=== PATIENT | male | born 1945 | race Caucasian/White ===

== ENCOUNTER 2017-09-05 15:48 | Observation (INO) ==
[2017-09-05] MEDS ORDERED: Naloxone 0.4 MG/ML INJ IVP PRN (20:50)
[2017-09-05] MEDS ORDERED: Fluticasone Propionate Nasal 50 MCG/SPRAY BOTTLE NS PRN (21:27)
[2017-09-05] MEDS ORDERED: Famotidine 20 MG TABLET PO PRN (21:27)
--- NOTE | 2017-09-05 21:49 | Internal Med History&Physical ---
Date of Encounter: 09/05/17 Time of Encounter: 20:00 Internal Medicine - H&P: HPI Chief complaint: Chest pain Admitted From: Home Plans for Post Hospital Care: Home History of present illness: Mr. Arce is a 71 year old male transferred from [facility] for chest pain. Past medical history is significant for CAD, COPD, hypertension, hyperlipidemia, PTSD. Patient has no history of CAD. He had LHC in 2016 and was found stenosis, cardiology told him the stenosis cannot be treated by stent or CABG, recommend medical management and advice patient come back to Hospital any time he has chest pain. This morning started from 3:00, patient starts to have right-sided chest pain, sharp, constant, no radiation. Patient denies shortness of breath, nausea, or diaphoresis. The pain is inducible as patient said touch on the right chest wall cause more pain. In [facility], 2 sets of troponin negative, chest x-ray negative. Patient transferred to our hospital for further management. Past Med Surg Social Fam HX - Past Medical History Medical history: COPD, hyperlipidemia, hypertension Psychiatric history: bipolar, PTSD - Past Surgical History Surgical History: appendectomy, vasectomy - Social History Smoking Status: Former smoker Smokeless Tobacco Status: No Alcohol use: occasionally Drug use: none - Family History Sister Adopted: No Living Status: Hx Family Cardiac Disorders: Yes Hx Family Respiratory Disorders: No Hx Family Cancer: Yes Hx Family GI Disorders: No Hx Family Endocrine Disorder: No Hx Family Neuromuscular Disorders: No Hx Family Neurologic Disorders: No Hx Family HEENT Disorders: No Hx Family Autoimmune Disorders: No Brother Adopted: No Living Status: Still Living Hx Family Cardiac Disorders: Yes Hx Family Respiratory Disorders: No Hx Family Cancer: Yes Hx Family GI Disorders: No Hx Family Endocrine Disorder: No Hx Family Neuromuscular Disorders: No Hx Family Neurologic Disorders: No Hx Family HEENT Disorders: No Hx Family Autoimmune Disorders: No Mother Adopted: No Living Status: Hx Family Cardiac Disorders: Yes Hx Family Respiratory Disorders: No Hx Family Cancer: Yes Hx Family GI Disorders: No Hx Family Endocrine Disorder: No Hx Family Neuromuscular Disorders: No Hx Family Neurologic Disorders: No Hx Family HEENT Disorders: No Hx Family Autoimmune Disorders: No Internal Medicine - H&P: Meds Aspirin 81 mg PO DAILY 09/18/15 [History] Cyproheptadine HCl 4 mg PO HS PRN 09/18/15 [History] FLUoxetine HCl [Prozac] 20 mg PO DAILY 09/18/15 [History] Fluticasone Propionate Nasal [Flonase] 1 spr NS DAILY PRN 09/18/15 [History] Loratadine [Claritin] 10 mg PO DAILY 09/18/15 [History] Ranitidine HCl [Heartburn Relief] 150 mg PO BID PRN 09/18/15 [History] hydrOXYzine pamoate [HydrOXYzine Pamoate] 50 mg PO TID PRN 09/18/15 [History] Atorvastatin [Lipitor] 40 mg PO HS #30 tablet 09/20/15 [Rx] Clopidogrel [Plavix] 75 mg PO DAILY #30 tablet 09/20/15 [Rx] Albuterol Sulfate [Albuterol Inhaler] 2 puff PO Q4HR 09/05/17 [History] Amlodipine Besylate 5 mg PO DAILY 09/05/17 [History] Ammonium Lactate [Miranda-Hydrolac] 1 appl DAILY 09/05/17 [History] Atorvastatin [Lipitor] 80 mg PO HS 09/05/17 [History] Isosorbide Mononitrate ER 30 mg PO DAILY 09/05/17 [History] Loratadine [Allergy Relief] 10 mg PO DAILY 09/05/17 [History] Metoprolol XL (24 HR) Succ [Toprol Xl] 100 mg PO DAILY 09/05/17 [History] Omeprazole [PriLOSEC] 20 mg PO DAILY 09/05/17 [History] Ranolazine [Ranexa] 500 mg PO BID 09/05/17 [History] Tiotropium [Spiriva] 18 mcg IH DAILY 09/05/17 [History] hydrOXYzine HCl [Hydroxyzine HCl] 09/05/17 [History] hydroCHLOROthiazide [Hydrochlorothiazide] 25 mg PO DAILY 09/05/17 [History] 3 Allergy/AdvReac Type Severity Reaction Status Date / Time No Known Allergies Allergy Verified 09/18/15 11:59 All Systems PM: A 10-system review of systems was performed and is negative for pertinent findings except as documented above in the HPI. - Constitutional Vitals: Temp Pulse Resp BP Pulse Ox 98.3 F 83 16 148/87 97 09/05/17 19:23 09/05/17 19:23 09/05/17 19:23 09/05/17 19:23 09/05/17 19:23 General appearance: Present: A&O X 3, no acute distress, answers questions appropriately - Head Head exam: Present: atraumatic, normocephalic - Eye Eye exam: Present: PERRL, conjuntiva pink, sclera anicteric Pupils: Present: PERRL - Neck Neck exam general surgery: Present: supple, trachea midline. Absent: lymphadenopathy - Respiratory Respiratory exam: Present: chest wall tenderness (On the right side chest wall) , CTAB. Absent: accessory muscle use, rales, rhonchi, wheezes - Cardiovascular Cardiovascular exam: Present: RRR, +S1, +S2. Absent: diastolic murmur, gallop, rubs, systolic murmur - GI/Abdominal GI/Abdominal exam: Present: normal bowel sounds, soft, no peritoneal signs. Absent: distended, tenderness - Extremities Exam Extremities exam: Present: warm, radial pulses palpable and symmetrical. Absent : calf tenderness, cyanotic, pedal edema - Neurological Exam Neurological exam: Present: CN II-XII intact, oriented X3, no focal deficits. Absent: pronater drift, facial droop, speech deficit - Skin Skin exam: Present: dry, intact Internal Med - H&P Results - EKG Data -: EKG Interpreted by Myself EKG shows normal: sinus rhythm, ST-T waves (V1-V3 T wave inversion, V4 T wave flat) Rate: normal - EKG Data Prior EKG available for review: yes When compared to previous EKG: there are significant changes, there is no significant change Interpretation IM: suggestive of ischemia - Assessment and plan (1) Chest pain Current Visit: Yes Status: Acute Assessment and plan: Inducible constant chest pain. More like chest wall pain due to skeletal muscular pain. However, patient has know CAD history. Pain is much less now. - EKG shows ST-T changes in anterior leads, no recent EKG available to compare, in 2016 EKG, there is no similar changes. - We will place patient on continuous cardiac monitoring. - Track 3 sets of troponin - Repeat EKG in a.m. - Echocardiogram - Continue aspirin, Plavix, beta jose maria, atorvastatin, and imdur - Consult cardiology as patient has EKG change Qualifiers: Chest pain type: intercostal pain Qualified Code(s): R07.82 - Intercostal pain (2) CAD (coronary artery disease) Current Visit: Yes Status: Acute Assessment and plan: Management as above Qualifiers: Coronary Disease-Associated Artery/Lesion type: [place] artery [place] vs. transplanted heart: [place] heart Associated angina: without angina Qualified Code(s): I25.10 - Atherosclerotic heart disease of [place] coronary artery without angina pectoris (3) COPD (chronic obstructive pulmonary disease) Current Visit: Yes Status: Acute Assessment and plan: No wheezing. Continue home medications. Qualifiers: COPD type: emphysema Emphysema type: unspecified Qualified Code(s): J43.9 - Emphysema, unspecified (4) HTN (hypertension) Current Visit: No Status: Acute Assessment and plan: Continue home medications Qualifiers: Hypertension type: essential hypertension Qualified Code(s): I10 - Essential (primary) hypertension - Time Spent With Patient Total time spent is greater than 50% in coordination of care (as documented) at patient's floor/unit and/or counseling patient: 40 minutes Greater than 35 minutes
[2017-09-06 03:42] LABS: Basophils % 0.7 %; Eosinophils # 0.1 K/mcL (0.0-0.6); Eosinophils % 2.2 %; Hematocrit 41.6 % (37.5-50.1); Hemoglobin 14.7 g/dL (12.9-16.9); Immature Granulocytes % 0.3 % (0-4); Mean Corpuscular HGB Conc 35.3 g/dL (31.6-35.5); Mean Corpuscular Hemoglobin 31.5 pg (28.0-33.3); Mean Corpuscular Volume 89.1 fL (83.0-100.0); Mean Platelet Volume 10.2 fL (9.4-12.4); Monocytes # 0.8 K/mcL (0.0-1.3); Monocytes % 13.1 %; Neutrophils # 2.9 K/mcL (1.6-8.9); Platelet Count 221 K/mcL (140-400); Red Blood Count 4.67 M/mcL (4.19-5.50); Red Cell Distribution Width 13.1 % (11.5-14.5); Segmented Neutrophils % 49.7 %
[2017-09-06 04:02] LABS: BUN/Creatinine Ratio 13 (6-26); Blood Urea Nitrogen 12 mg/dL (8-23); Calcium 8.8 mg/dL (8.6-10.3); Carbon Dioxide 30 mEq/L (23-29); Chloride 102 mEq/L (98-107); Glucose 103 mg/dL (70-105); Osmolality,Calculated 282 (280-300); Potassium 3.5 mEq/L (3.5-5.1); Sodium 136 mEq/L (136-145); eGFR For African Americans > 60 (> 60); eGFR For Non-African Americans > 60 (> 60)
[2017-09-06] MEDS ORDERED: Aspirin 81 MG TAB.CHEW PO SCH (09:00)
[2017-09-06] MEDS ORDERED: hydroCHLOROthiazide 25 MG TABLET PO SCH (09:00)
[2017-09-06] MEDS ORDERED: Loratadine 10 MG TABLET PO SCH (09:00)
[2017-09-06] MEDS ORDERED: FLUoxetine 20 MG CAPSULE PO SCH (09:00)
[2017-09-06] MEDS ORDERED: Metoprolol XL (24 HR) Succ 50 MG TAB.ER.24H PO SCH (09:00)
[2017-09-06] MEDS ORDERED: Isosorbide MONOnitrate (24 HR) 30 MG TAB.ER.24H PO SCH (09:00)
[2017-09-06] MEDS ORDERED: amLODIPine 5 MG TABLET PO SCH (09:00)
[2017-09-06] MEDS ORDERED: Ranolazine 500 MG TAB.ER.12H PO SCH (09:00)
[2017-09-06] MEDS ORDERED: Tiotropium 18 MCG inhalation IH SCH (10:00)
[2017-09-06 11:16] VITALS: BP 146/71
--- NOTE | 2017-09-06 11:53 | Cardiology Consult Note ---
<Ryan Maldonado - Last Filed: 09/06/17 11:48> Date of Encounter: 09/06/17 Time of Encounter: 10:00 Assessment and Plan (1) Chest pain Current Visit: Yes Status: Acute Muscle skeletal chest pain after doing strenuous activity. Pain is now resolved. Troponin negative. EKG shows NSR with T wave changes in pre-cordial leads that are unchanged from prior EKG completed in 2017 at cardiology [facility] ([facility]). [facility] 09/2015: LVEF 60%, normal wall motion. Moderate diastolic dysfunction. Mild [facility] 09/2015: occluded proximal Circ (a IRON CARRIER), significant bridging in the mid LAD and severe distal LAD stenosis, intermediate RCA disease and severe ostial PDA stenosis. Recommend continued medical management. Continue asa, statin, and bb, imdur, and ranexa. Add NTG SL PRN chest pain. Qualifiers: Chest pain type: intercostal pain Qualified Code(s): R07.82 - Intercostal pain (2) 3-vessel coronary artery disease Current Visit: No Status: Ruled-out Known CAD not amendable to PCI. Noted that previous anginal pain was epigastric pain. Denies epigastric pain. Continue medical management. Discussion w patient/family: The assessment and plan as outlined above was discussed with the patient and/or family members who expressed understanding and agreement. All questions were answered. Thank you for involving us in the care of your patient. Please call with any questions. History of Present Illness Consult date: 09/06/17 Requesting physician: Georges Khoury Consult reason: Chest pain Chief complaint: right sided sharp pain History of present illness: Mr. Arce is a 71 year old male with past medical history of known NH and CAD not ammendable to PCI on [facility] in 2015, COPD, PTSD, bipolar disorder, and HTN. He presents with the c/o chest pain starting two nights ago in his right upper chest described as a harp pain that was reproducible. He says it occurred the night after doing yard work all day and after wresting with his 80 lb dog. While he was working in his yard and walking is dog that week he denies symptoms. He reports he was doing well otherwise. Past Med Surg Social Fam HX - Past Medical History Attestation: Yes The following information was validated with the patient. Medical history: COPD, coronary artery disease, hyperlipidemia, hypertension Psychiatric history: bipolar, PTSD - Past Surgical History Surgical History: appendectomy, vasectomy - Social History Smoking Status: Former smoker Smokeless Tobacco Status: No Alcohol use: occasionally Drug use: none - Family History Sister Adopted: No Living Status: Hx Family Cardiac Disorders: Yes Hx Family Respiratory Disorders: No Hx Family Cancer: Yes Hx Family GI Disorders: No Hx Family Endocrine Disorder: No Hx Family Neuromuscular Disorders: No Hx Family Neurologic Disorders: No Hx Family HEENT Disorders: No Hx Family Autoimmune Disorders: No Brother Adopted: No Living Status: Still Living Hx Family Cardiac Disorders: Yes Hx Family Respiratory Disorders: No Hx Family Cancer: Yes Hx Family GI Disorders: No Hx Family Endocrine Disorder: No Hx Family Neuromuscular Disorders: No Hx Family Neurologic Disorders: No Hx Family HEENT Disorders: No Hx Family Autoimmune Disorders: No Mother Adopted: No Living Status: Hx Family Cardiac Disorders: Yes Hx Family Respiratory Disorders: No Hx Family Cancer: Yes Hx Family GI Disorders: No Hx Family Endocrine Disorder: No Hx Family Neuromuscular Disorders: No Hx Family Neurologic Disorders: No Hx Family HEENT Disorders: No Hx Family Autoimmune Disorders: No Medications and Allergies Aspirin 81 mg PO DAILY 09/18/15 [History] FLUoxetine HCl [Prozac] 20 mg PO DAILY 09/18/15 [History] Fluticasone Propionate Nasal [Flonase] 1 spr NS DAILY PRN 09/18/15 [History] Loratadine [Claritin] 10 mg PO DAILY 09/18/15 [History] Ranitidine HCl [Heartburn Relief] 150 mg PO BID PRN 09/18/15 [History] hydrOXYzine pamoate [HydrOXYzine Pamoate] 50 mg PO TID PRN 09/18/15 [History] Atorvastatin [Lipitor] 40 mg PO HS #30 tablet 09/20/15 [Rx] Clopidogrel [Plavix] 75 mg PO DAILY #30 tablet 09/20/15 [Rx] Albuterol Sulfate [Albuterol Inhaler] 2 puff PO Q4HR 09/05/17 [History] Amlodipine Besylate 5 mg PO DAILY 09/05/17 [History] Ammonium Lactate [Miranda-Hydrolac] 1 appl DAILY 09/05/17 [History] Isosorbide MONOnitrate (24 HR) [Imdur] 30 mg PO DAILY 09/05/17 [History] Metoprolol XL (24 HR) Succ [Toprol Xl] 100 mg PO DAILY 09/05/17 [History] Omeprazole [PriLOSEC] 20 mg PO DAILY 09/05/17 [History] Ranolazine [Ranexa] 500 mg PO BID 09/05/17 [History] Tiotropium [Spiriva] 18 mcg IH DAILY 09/05/17 [History] hydroCHLOROthiazide [Hydrochlorothiazide] 25 mg PO DAILY 09/05/17 [History] Cyprohepatdine [Periactin] 4 mg PO HS PRN 09/06/17 [History] 3 Allergy/AdvReac Type Severity Reaction Status Date / Time No Known Allergies Allergy Verified 09/06/17 10:09 All Systems Review: The remainder of the systems were reviewed and are negative Physical Examination Vital Signs, Last 4 Hours Temp Pulse Resp BP Pulse Ox 09/06/17 11:11 97.6 F 53 16 146/71 96 09/06/17 10:51 18 98 09/06/17 09:09 98 09/06/17 07:50 16 98 General: Conversant, No Apparent Distress HEENT: Atraumatic, Normocephaly, Mucus Membranes Moist Neck: No JVD, Normal carotid pulses Cardiac: Reg Rate and Rhythm, Normal S1 and S2, No Murmur Lungs: Normal Breath Sounds, No Wheeze, Rales, Rhonchi Neuro: Alert and responsive, No focal deficits noted Abdomen: Soft, Non-Tender Skin: No rashes noted on visualized skin Musculoskeletal: No Chest Wall Tenderness Extremities: No Clubbing, No Cyanosis, No Edema, Normal Pulses Results 09/06/17 03:31 09/06/17 03:31 Lab Results 09/05/17 09/06/17 09/06/17 22:00 03:31 03:31 WBC 5.8 Hgb 14.7 Hct 41.6 Plt Count 221 Sodium Potassium Chloride Carbon Dioxide BUN Creatinine Glucose Calcium Troponin I < 0.03 < 0.03 09/06/17 03:31 WBC Hgb Hct Plt Count Sodium 136 Potassium 3.5 Chloride 102 Carbon Dioxide 30 H BUN 12 Creatinine 0.94 Glucose 103 Calcium 8.8 Troponin I - Imaging and Cardiology Echo: report reviewed Cardiac cath: report reviewed <Erica Cross - Last Filed: 09/06/17 12:47> Date of Encounter: 09/06/17 - Attending Attestation I examined this patient and my medical decision-making was reviewed with the CARD TAPE CONVERTER OPERATOR. I agree with the documented findings, disposition and treatment plan as described. Mr. Arce is known to me from the outpatient setting. He has a history of extensive CAD and has been managed medically. He presents this visit with right sided chest pain that was initially tender to palpation when he came in. He admits to doing very difficult physical labor at home. He even picked up the side of a riding statistician because it was falling. He also walks his dog ( or rather the dog walks him) while holding the leash in his right hand. Workup from a cardiac standpoint has been unremarkable - set of troponins negative and no new ECG changes when compared to old ECG. He is feeling back to his baseline now. I've strongly encouraged him to recognize physical limitations and to breath through activities without straining. He may also ask one of his family members to help walk his dog. No further testing is warranted at this time. Of note, his reports that he's had a few episodes of "blacking out" - not syncope but sometimes will have a lapse in his memory. He is on asa and plavix and would unlikely be TIA. However, I've asked him to be evaluated by Neurology as an outpatient which could be done at [place] or the MD. Patient and agree. This plan was discussed with the Hospitalist. Cardiology will sign off. I will see him as an outpatient. Assessment and Plan Discussion w patient/family: The assessment and plan as outlined above was discussed with the patient and/or family members who expressed understanding and agreement. All questions were answered. Thank you for involving us in the care of your patient. Please call with any questions. History of Present Illness History of present illness: Mr. Arce is a 71 year old male All Systems Review: The remainder of the systems were reviewed and are negative Physical Examination Vital Signs, Last 4 Hours Temp Pulse Resp BP Pulse Ox 09/06/17 11:11 97.6 F 53 16 146/71 96 09/06/17 10:51 18 98 09/06/17 09:09 98 Results 09/06/17 03:31 09/06/17 03:31 Lab Results 09/05/17 09/06/17 09/06/17 22:00 03:31 03:31 WBC 5.8 Hgb 14.7 Hct 41.6 Plt Count 221 Sodium Potassium Chloride Carbon Dioxide BUN Creatinine Glucose Calcium Troponin I < 0.03 < 0.03 09/06/17 03:31 WBC Hgb Hct Plt Count Sodium 136 Potassium 3.5 Chloride 102 Carbon Dioxide 30 H BUN 12 Creatinine 0.94 Glucose 103 Calcium 8.8 Troponin I
[2017-09-06] MEDS ORDERED: Nitroglycerin 0.4 MG TAB.SUBL SL PRN (11:59)
--- NOTE | 2017-09-06 13:16 | Discharge Summary ---
- NOTES TO OUTPATIENT PROVIDER Notes to Outpatient Provider: Cardiology recommending continued medical management with aspirin and statin beta jose maria and Dr. Mccabe sublingual nitroglycerin as needed. - reporting patient having laps in memory he is presently on aspirin and Plavix-neurology to see as outpatient either at [place] or the [place] Orders not resulted at time of discharge: Pending orders 09/05/17 20:34 ECG 12 lead ECG [ECG] Stat 09/05/17 21:33 EV echocardiogram Routine 09/06/17 06:00 EKG [ECG 12 lead ECG] [ECG] AM 0600 Date of Encounter: 09/06/17 Time of Encounter: 13:12 - Discharge Diagnosis (1) HTN (hypertension) Priority: Secondary Status: Acute Qualifiers: Hypertension type: essential hypertension Qualified Code(s): I10 - Essential (primary) hypertension (2) Chest pain Priority: Primary Status: Acute Qualifiers: Chest pain type: intercostal pain Qualified Code(s): R07.82 - Intercostal pain (3) CAD (coronary artery disease) Priority: Secondary Status: Acute Qualifiers: Coronary Disease-Associated Artery/Lesion type: [place] artery [place] vs. transplanted heart: [place] heart Associated angina: without angina Qualified Code(s): I25.10 - Atherosclerotic heart disease of [place] coronary artery without angina pectoris (4) COPD (chronic obstructive pulmonary disease) Priority: Secondary Status: Acute Qualifiers: COPD type: emphysema Emphysema type: unspecified Qualified Code(s): J43.9 - Emphysema, unspecified Hospital course: Mr. Arce is a 71 year old male past medical history of COPD hyperlipidemia hypertension PTSD. Patient has no past history of CAD he did have a left heart catheter in 2016 was found stenosis with medical management. He presented to [facility] ER with complaints of chest pain started on the right side which is sharp and consistent nonradiating. The pain is reproducible on palpation. Patient is very active and has been doing yard work as well as wrestling with his dog. Troponins are negative chest x-ray negative patient transferred to a [facility] for further workup and evaluation. Patient was seen and evaluated by cardiology who felt this was more musculoskeletal chest pain due to strenuous activity. Patient started experiencing any chest pain EKG with normal sinus rhythm with no acute ST changes. Cardiology recommending continued medical management with aspirin statin beta jose maria and Imdur and Ranexa. Patient will be discharged with sublingual nitroglycerin. Patient's did express concern about patient having memory loss -however denies any syncopal episodes. This has been going on for some time patient is presently on aspirin and Plavix do not suspected TIA neurologically appears to be intact there are no focal deficits patient is to be evaluated by [place] neurology which she states she is making appointment next week. He is hemodynamically stable cardiology okay with patient discharge and follow-up with human performance technologist. I did review medications and follow-up plans with patient and his who verbalized understanding he is ready for discharge. Discharge discussed with: patient - Time Spent with Patient Total time spent providing and/or coordinating discharge services: - Discharge Medications Prescriptions: Nitroglycerin 0.4 mg SL Q5MIN PRN #30 tab.subl PRN Reason: Chest Pain Home Medications: Aspirin 81 mg PO DAILY 09/18/15 [History] FLUoxetine HCl [Prozac] 20 mg PO DAILY 09/18/15 [History] Fluticasone Propionate Nasal [Flonase] 1 spr NS DAILY PRN 09/18/15 [History] Loratadine [Claritin] 10 mg PO DAILY 09/18/15 [History] Ranitidine HCl [Heartburn Relief] 150 mg PO BID PRN 09/18/15 [History] hydrOXYzine pamoate [HydrOXYzine Pamoate] 50 mg PO TID PRN 09/18/15 [History] Atorvastatin [Lipitor] 40 mg PO HS #30 tablet 09/20/15 [Rx] Clopidogrel [Plavix] 75 mg PO DAILY #30 tablet 09/20/15 [Rx] Albuterol Sulfate [Albuterol Inhaler] 2 puff PO Q4HR 09/05/17 [History] Amlodipine Besylate 5 mg PO DAILY 09/05/17 [History] Ammonium Lactate [Miranda-Hydrolac] 1 appl DAILY 09/05/17 [History] Isosorbide MONOnitrate (24 HR) [Imdur] 30 mg PO DAILY 09/05/17 [History] Metoprolol XL (24 HR) Succ [Toprol Xl] 100 mg PO DAILY 09/05/17 [History] Omeprazole [PriLOSEC] 20 mg PO DAILY 09/05/17 [History] Ranolazine [Ranexa] 500 mg PO BID 09/05/17 [History] Tiotropium [Spiriva] 18 mcg IH DAILY 09/05/17 [History] hydroCHLOROthiazide [Hydrochlorothiazide] 25 mg PO DAILY 09/05/17 [History] Cyprohepatdine [Periactin] 4 mg PO HS PRN 09/06/17 [History] Nitroglycerin 0.4 mg SL Q5MIN PRN #30 tab.subl 09/06/17 [Rx] Allergies/Adverse Reactions: 3 Allergy/AdvReac Type Severity Reaction Status Date / Time No Known Allergies Allergy Verified 09/06/17 10:09 Date of admission: 09/05/17 18:38 Consults: 09/05/17 21:33 Consult to Cardiology [CONS] Routine Comment: Consulting Provider: Cardiology Sabrina Reason for Consult: Chest pain with EKG changes, Hx of CAD Call Completed: No Discharging clinician: Tawanna Rosado Anticipated date of discharge: 09/06/17 - Constitutional Vitals: Temp Pulse Resp BP Pulse Ox 97.6 F 53 16 146/71 96 09/06/17 11:11 09/06/17 11:11 09/06/17 11:11 09/06/17 11:11 09/06/17 11:11 General appearance: Present: A&O X 3, no acute distress, answers questions appropriately - Patient Status Disposition: Home, Self-Care Condition: Good Functional capacity at discharge: independent ambulation Overall status at discharge: patient is back to baseline - Discharge Instructions Instructions: Myocardial Infarction (DC), Chest Pain (DC), Chronic Obstructive Pulmonary Disease (DC), Chronic Hypertension (DC) Additional Instructions: Continue with aspirin and Ranexa atorvastatin metoprolol Follow-up with cardiology Follow-up with neurology-[place]/ [place] Nitroglycerin sublingual for chest pain - Diet and Activity Activity: increase activity as tolerated Diet: low fat, low cholesterol
--- NOTE | 2017-09-09 06:43 | Electrocardiograph Report ---
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
--- NOTE | 2017-09-09 06:45 | Electrocardiograph Report ---
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
== END 2017-09-06 14:40 | disposition home or self-care (01) ==
LOC: 3BNU
PROVIDERS: ADMIT Internal Medicine; ATTEND Internal Medicine Nephrology